=== PATIENT | female | born 1960 | race African-American/Black ===

== ENCOUNTER → 2022-12-18 | Outpatient (CLI) | payer MEDICAID ==
[~2022-12-18] MED LIST: CATHETER FLUSH 10 ML SYR IVP PRN
--- NOTE | 2022-12-20 09:10 | Diagnostic Imaging Report ---
Indication: Right lung mass, initial staging. Serum blood glucose level at the time of injection 66 mg/dL. Patient was administered 9.7 mCi F-18 FDG intravenously in the right antecubital location and PET imaging was performed from the top of skull to mid thighs. Noncontrast CT was also performed for attenuation correction and anatomic correlation. No prior imaging is available for comparison. There is symmetric activity throughout the brain. Soft tissues of the neck are unremarkable. There is a soft tissue mass in the right upper lobe approximately 7.4 x 6.6 cm in size extending to the right hilum. A mass is hypermetabolic with SUV max approximately 21. No mediastinal or left hilar hypermetabolic foci are seen. No other pulmonary parenchymal abnormalities are identified. Abdomen and pelvis demonstrate physiologic activity throughout the gastrointestinal genitourinary tract. No suspicious hypermetabolic foci in abdomen or pelvis are identified. IMPRESSION: Hypermetabolic right upper lobe mass consistent with primary lung malignancy. No other hypermetabolic foci or evidence of metastatic disease is detected. Dictated by: Dictated on workstation # [id number]
== END ==
LOC: RAD 12-11 09:15
DX: R91.8 Other nonspecific abnormal finding of lung field (principal); R05.3 Chronic cough
CPT/HCPCS: 82947